=== PATIENT | female | born 1995 | race Caucasian/White ===

== ENCOUNTER 2018-04-08 18:38 | Emergency (ER) | payer BC ==
[2018-04-08 19:05] VITALS: O2SAT 96
[2018-04-08] MEDS ORDERED: Rocephin 1000 MG INJ IM ONE (19:06)
[2018-04-08] MEDS ORDERED: solu-MEDROL 125 MG IM ONE (19:07)
[2018-04-08] MEDS ORDERED: HYDROCODONE-ACETAMIN 2.5-108/5 ML SOLUTION PO STA (19:08)
--- NOTE | 2018-04-08 19:08 | ERPHSYRPT ---
- History of Present Illness Time Seen by Provider: 04/08/18 18:55 Source: patient Exam Limitations: no limitations Patient Subjective Stated Complaint: COUGH SINCE 04/06. SEEN AT [facility] AND WAS GIVEN COUGH MED AND STERIODS.. NOT IMPROVING.. SOB WHEN COUGHING WILL VOMIT SOMETIMES WITH COUGHING. Triage Nursing Assessment: ALERT AND ORIENTED IN NO DISTRESS. COUGH NOTED. NON PRODUCTIVE. CONGESTED COUGH. 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 Physician History: 23 y/o white female presents with coughing for 2 days. pt returned from cruise 04/04/18 and began coughing 04/06/18. pt seen by urgent care on 04/07/18. pt given tessalon perles. in addition, pt received rx for steroids. however, she did not fill rx. sx worse since yesterday. pt has taken keflex in past. pt denies n/v/d but did dry heave during gagging from coughing spells. Timing/Duration: day(s) (2) Cough Quality/Degree: dry cough Possible Cause: no prior episodes Modifying Factors: Improves With: coughing, deep breath Associated Symptoms: chest pain/soreness (with coughing), cough, No fever Allergies/Adverse Reactions: iodine Allergy (Intermediate, Verified 01/07/16 11:24) hives, swelling Penicillins Allergy (Mild, Verified 01/07/16 11:24) Itching promethazine HCl [From Phenergan] Adverse Reaction (Mild, Verified 01/07/16 11: 24) Hives pt states she has taken phenergan without problems -the problems was once after taken a phenergan pill tramadol Adverse Reaction (Verified 01/07/16 11:24) Vomiting Home Medications: Clonazepam [Klonopin] 1 mg PO UD PRN 06/24/15 [History] Levetiracetam [Keppra] 750 mg PO BID 06/24/15 [History] Hx Tetanus, Diphtheria Vaccination/Date Given: Yes Hx Influenza Vaccination/Date Given: No Hx Pneumococcal Vaccination/Date Given: No - Review of Systems Constitutional: No Symptoms Eyes: No Symptoms Ears, Nose, & Throat: No Symptoms Respiratory: Cough, No Dyspnea, No Stridor, No Wheezing Cardiac: No Symptoms, No Chest Pain, No Palpitations, No Syncope Abdominal/Gastrointestinal: No Symptoms, No Abdominal Pain, No Nausea, No Vomiting, No Diarrhea Genitourinary Symptoms: No Symptoms, No Dysuria, No Frequency, No Hematuria Musculoskeletal: No Symptoms Neurological: No Symptoms Psychological: No Symptoms Endocrine: No Symptoms Hematologic/Lymphatic: No Symptoms Immunological/Allergic: No Symptoms All Other Systems: Reviewed and Negative - Past Medical History Pertinent Past Medical History: Yes Neurological History: Seizures ENT History: No Pertinent History Cardiac History: No Pertinent History Respiratory History: Asthma Endocrine Medical History: Hypothyroidism Musculoskeletal History: No Pertinent History GI Medical History: No Pertinent History History: No Pertinent History Psycho-Social History: Anxiety Female Reproductive Disorders: No Pertinent History Other Medical History: PALPITATIONS. KIDNEY STONES - Past Surgical History Past Surgical History: Yes Neuro Surgical History: No Pertinent History Cardiac: No Pertinent History Respiratory: No Pertinent History Gastrointestinal: No Pertinent History Genitourinary: No Pertinent History Musculoskeletal: No Pertinent History Female Surgical History: No Pertinent History - Social History Smoking Status: Never smoker Exposure to second hand smoke: No Drug Use: none Patient Lives Alone: No - Female History Hx Now: No (HAD NEGATIVE PREG TEST YESTER) - Nursing Vital Signs Nursing Vital Signs: Initial Vital Signs Temperature 97.9 F 04/08/18 18:56 Pulse Rate 72 04/08/18 18:56 Respiratory Rate 18 04/08/18 18:56 Blood Pressure 111/82 04/08/18 18:56 O2 Sat by Pulse Oximetry 96 04/08/18 18:56 Pain Scale Pain Intensity 0 - Physical Exam General Appearance: no apparent distress, alert, anxiety Eye Exam: PERRL/EOMI, eyes nml inspection Ears, Nose, Throat Exam: normal ENT inspection, moist mucous membranes Neck Exam: normal inspection, non-tender, supple, full range of motion Respiratory Exam: normal breath sounds, chest tenderness (with cough only), lungs clear, airway intact, No respiratory distress, No accessory muscle use, No rhonchi, No wheezing, No stridor Cardiovascular Exam: regular rate/rhythm, normal heart sounds, normal peripheral pulses Gastrointestinal/Abdomen Exam: soft, normal bowel sounds, No tenderness, No guarding, No rebound Pelvic Exam: not done Rectal Exam: not done Back Exam: normal inspection, normal range of motion, CVA tenderness Extremity Exam: normal inspection, normal range of motion, pelvis stable Neurologic Exam: alert, oriented x 3, cooperative, 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 Skin Exam: normal color, warm, dry Lymphatic Exam: No adenopathy SpO2 Interpretation: normal SpO2: 96 Oxygen Delivery: Room Air - Course Nursing assessment & vital signs reviewed: Yes Ordered Tests: Medication Summary Discontinued Medications Generic Name Dose Route Start Last Admin Trade Name Thierry PRN Reason Stop Dose Admin Hydrocodone Bitart/Acetaminophen 15 ml 04/08/18 19:08 04/08/18 19:33 Hydrocodone-Acetamin 2.5-108/5 Ml Solution PO 04/08/18 19:09 15 ml STAT STA Administration Hydrocodone Bitart/Acetaminophen Confirm 04/08/18 19:27 Hydrocodone-Acetamin 2.5-108/5 Ml Solution Administered 04/08/18 19:28 Dose 15 ml .ROUTE .STK-MED ONE Ceftriaxone Sodium 1,000 mg 04/08/18 19:06 04/08/18 19:34 Rocephin 1000 Mg Inj IM 04/08/18 19:07 1,000 mg STAT ONE Administration Ceftriaxone Sodium Confirm 04/08/18 19:27 Rocephin 1000 Mg Inj Administered 04/08/18 19:28 Dose 1,000 mg .ROUTE .STK-MED ONE Ceftriaxone Sodium Confirm 04/08/18 19:42 Rocephin 1000 Mg Inj Administered 04/08/18 19:43 Dose 1,000 mg .ROUTE .STK-MED ONE Lidocaine HCl Confirm 04/08/18 19:42 Xylocaine 1% Hcl 20 Ml Mdv Administered 04/08/18 19:43 Dose 1 ml .ROUTE .STK-MED ONE Methylprednisolone Sodium Succinate 125 mg 04/08/18 19:07 04/08/18 19:34 Solu-Medrol 125 Mg IM 04/08/18 19:08 125 mg STAT ONE Administration Methylprednisolone Sodium Succinate Confirm 04/08/18 19:27 Solu-Medrol 125 Mg Administered 04/08/18 19:28 Dose 125 mg .ROUTE .STK-MED ONE - Progress Progress: improved, re-examined Air Movement: good Progress Note: 04/08/18 19:43 since i was going to tx pt for both "walking pneumonia" and bronchitis regardless of cxr findings, pt opted to decline cxr when i offered her the xray. Blood Culture(s) Obtained: No Antibiotics given: Yes Counseled pt/family regarding: diagnosis, need for follow-up - Departure Time of Disposition: 19:44 Departure Disposition: Home Clinical Impression: Bronchitis Condition: Stable Critical Care Time: No Referrals: MIGUEL BONDS NP [Primary Care Provider] - Additional Instructions: drink plenty of fluids. may use tessalon perles in addition to cough syrup if needed. follow up with primary doctor for persistent symptoms Prescriptions: Albuterol 8 gm Mdi Hfa [Ventolin Hfa MDI] 8 gm IH Q4H #1 hfa.aer.ad Azithromycin 250 mg [Zithromax 250 MG TABLET] 250 mg PO ZPACK #6 tablet Hydrocodone Bit/Acetaminophen [Hydrocodone-Acetaminophen Soln] 10 ml PO Q6H # 120 ml
[2018-04-08] MEDS ORDERED: solu-MEDROL 125 MG ONE (19:27)
[2018-04-08] MEDS ORDERED: HYDROCODONE-ACETAMIN 2.5-108/5 ML SOLUTION ONE (19:27)
[2018-04-08] MEDS ORDERED: Rocephin 1000 MG INJ ONE ×2 (19:27→19:42)
[2018-04-08] MEDS ORDERED: XYLOCAINE 1% HCL 20 ML MDV ONE (19:42)
[2018-04-08 19:57] VITALS: BP 115/69; PULSE 78
== END 2018-04-08 20:22 | disposition home or self-care (01) ==
LOC: ED 18:38
DX: J40 Bronchitis, not specified as acute or chronic (principal); Z79.899 Other long term (current) drug therapy
CPT/HCPCS: 96372; 99284; J0696; J2930; A9270-GY

== ENCOUNTER 2018-04-09 10:09 | Emergency (ER) | payer BC ==
[2018-04-09 10:46] VITALS: O2SAT 99
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
[2018-04-09 11:23] VITALS: BP 110/67; PULSE 78
== END 2018-04-09 11:28 | disposition home or self-care (01) ==
LOC: ED 10:09 → MERGE 10:09 → ED 11:28
DX: R05 Cough (principal)
CPT/HCPCS: 99283

== ENCOUNTER 2018-12-30 09:51 | Emergency (ER) | payer BC ==
[2018-12-30] MEDS ORDERED: Keppra 500 MG/5 ML*** 500 MG in D5w 100ML Mini Bag 100 ML 100 ML IV ONE ×2 (09:53→11:33)
[2018-12-30] MEDS ORDERED: Sodium Chloride 0.9% 1000 ML 1,000 ML IV STA (09:53)
[2018-12-30] MEDS ORDERED: Ativan 2 MG/1 ML VIAL ONE ×4 (09:56→12:16)
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
[2018-12-30] MEDS ORDERED: Keppra 500 MG/5 ML ONE (10:01)
[2018-12-30] MEDS ORDERED: D5w 100ML Mini Bag 100 ML 100 ML IV ONE (10:03)
[2018-12-30 10:12] LABS: BASOPHIL % 0.3 % (0.0-0.4); Basophil (Absolute #) 0.02 (0-0.4); Eosinophil % 0.6 % (0.00-5.0); Eosinophil (Absolute #) 0.04 (0-0.5); Granulocyte Absolute (ANC) 5.31 (1.4-6.9); Granulocytes % 78.3 % (36.0-66.0); Hematocrit 42.4 % (35-47); Hemoglobin 14.1 gm/dl (12.0-16.0); Lymphocyte (Absolute #) 0.97 (1.0-4.6); Lymphocytes % 14.3 % (24.0-44.0); Mean Cell Volume 93.4 fl (78-100); Mean Corpuscular Hemoglobin 31.1 pg (26-32); Mean Corpuscular Hgb Concent. 33.3 g/dl (32-36); Mean Platelet Volume 10.9 fl (6-9.5); Monocyte (Absolute #) 0.44 (0.0-1.3); Monocytes % 6.5 % (0.0-12.0); Platelet Count 176 K/mm3 (150-450); Red Blood Count 4.54 M/mm3 (4.1-5.4); Red Cell Distribution Width 12.1 % (11.5-14.0); White Blood Count 6.8 K/mm3 (4.0-10.5)
[2018-12-30 10:20] VITALS: O2SAT 99
[2018-12-30 10:22] LABS: ALBUMIN 4.4 g/dL (3.5-5.0); ALKALINE PHOSPHATASE 43 U/L (38-126); ANION GAP 12.4 MEQ/L (5-15); BLOOD UREA NITROGEN 13 mg/dL (7-17); CHLORIDE 107 mmol/L (98-107); Calcium 9.8 mg/dL (8.4-10.2); Carbon Dioxide 25 mmol/L (22-30); Creatinine 1 0.77 mg/dL (0.52-1.04); Glucose 89 mg/dL (74-106); Potassium 3.7 mmol/L (3.5-5.1); SGOT/AST 16 U/L (14-36); SGPT/ALT 11 U/L (0-35); SODIUM 141 mmol/L (137-145); Total Protein 7.2 g/dL (6.3-8.2)
[2018-12-30] MEDS ORDERED: Sodium Chloride 0.9% 1000 ML 1,000 ML ONE (10:29)
--- NOTE | 2018-12-30 10:38 | XRAY ---
Indication: Status post fall. Seizures. Multiple contiguous axial images obtained through the head without contrast. Comparison: July 19, 2013. Again normal appearing brain parenchyma, ventricles, and bony calvarium. Visualized paranasal sinuses and mastoid air cells are clear. Impression: Normal CT head without contrast exam. CT DI 50.53
--- NOTE | 2018-12-30 10:40 | XRAY ---
Indication: Status post fall. Seizures. Multiple contiguous axial images obtained through the cervical spine. Sagittal and coronal reformatted images obtained. Comparison: July 19, 2013. Axial images again negative for acute fracture, suspicious bony lesions, or spinal canal stenosis. Sagittal and coronal reformatted images again demonstrates minimal cervical lordotic reversal, positional versus paraspinal spasm. Vertebral body heights/disc spaces maintained. Again no acute compression fracture, subluxation, or jumped facet. Normal appearing craniocervical junction. Visualized noncontrasted soft tissues unremarkable. New left lung apex calcified granuloma not previously imaged. Impression: Again cervical lordotic reversal, positional versus paraspinal spasm. Remaining CT cervical spine is negative. CT DI 45.86
[2018-12-30 12:21] VITALS: BP 110/72; PULSE 72
== END 2018-12-30 12:10 | disposition short-term general hospital (02) ==
LOC: ED 09:51
DX: G40.909 Epilepsy, unspecified, not intractable, without status epilepticus (principal)
CPT/HCPCS: 36000; 36415; 70450; 72125; 80053; 81025; 85025; 93005; 93041; 96360; 96365; 99285; 99291; J1953; J2060